=== PATIENT | female | born 2000 | race African-American/Black ===

== ENCOUNTER 2025-04-13 06:28 | Emergency (ER) | payer OTHER ==
[~2025-04-13] VITALS: Ht 172.7 cm; Wt 79.4 kg
[2025-04-13] MEDS ORDERED: METOPROLOL TARTRATE 25 MG TABLET ONE (07:13)
[2025-04-13] MEDS: IV NS 0.9% 1,000 ML BAG IV ONE (07:14)
[2025-04-13 07:16] LABS: BASOPHILS # (AUTO) 0.1 K/uL (0.0-0.2); BASOPHILS % (AUTO) 0.7 % (0.0-2.0); EOSINOPHILS % (AUTO) 0.2 % (0.0-6.0); HEMATOCRIT 36 % (33-45); HEMOGLOBIN 11.3 g/dL (11.5-14.8); LYMPHOCYTES % (AUTO) 20.6 % (20.0-44.0); MEAN CORPUSCULAR HEMOGLOBIN 22 PG (26.0-33.0); MEAN CORPUSCULAR HGB CONC 32 g/dl (31.0-36.0); MEAN CORPUSCULAR VOLUME 68 fL (82-100); MONOCYTES # (AUTO) 0.5 K/uL (0.1-1.30); MONOCYTES % (AUTO) 5.6 % (2.0-12.0); NEUTROPHILS # (AUTO) 6.9 K/uL (1.8-8.9); NEUTROPHILS % (AUTO) 72.9 % (43.0-81.0); PLATELET COUNT (AUTO) 236 K/uL (150-450); RED BLOOD CELL COUNT(AUTO) 5.21 MIL/uL (4.0-5.2); RED CELL DISTRIBUTION WIDTH 16.9 % (11.5-15.0); WHITE BLOOD COUNT (AUTO) 9.5 K/uL (4.3-11.0)
[2025-04-13 07:24] LABS: CARBON DIOXIDE 25 mmol/L (21-32); CHLORIDE 97 mmol/L (98-107); CREATININE 0.6 mg/dL (0.6-1.3); GLUCOSE 100 mg/dL (74-106); POTASSIUM 3.3 mmol/L (3.5-5.1); SODIUM SERUM 134 mmol/L (136-145); UREA NITROGEN, BLOOD 6 mg/dL (7-18)
[2025-04-13 07:32] LABS: ALANINE AMINOTRANSFERASE 44 U/L (12-78); ALBUMIN 4.2 g/dL (3.4-5.0); ALCOHOL, BLOOD 45 mg/dL (0-10); ALKALINE PHOSPHATASE 56 U/L (46-116); ASPARTATE AMINOTRANSFERASE 60 U/L (15-37); BILIRUBIN,DIRECT 0.4 mg/dL (0.0-0.2); BILIRUBIN,TOTAL 1.6 mg/dL (0.2-1.0); TOTAL PROTEIN, SERUM 8.2 g/dL (6.4-8.2)
[2025-04-13] MEDS: METOPROLOL TARTRATE 25 MG TABLET PO ONE (07:40)
[2025-04-13 07:48] VITALS: BP 121/57; TEMP 97.9; O2SAT 99
== END 2025-04-13 07:50 | disposition left against medical advice (07) ==
LOC: ER 06:32
DX: R00.0 Tachycardia, unspecified (principal); F41.1 Generalized anxiety disorder; E87.1 Hypo-osmolality and hyponatremia; E87.6 Hypokalemia; F41.0 Panic disorder [episodic paroxysmal anxiety]; Z79.899 Other long term (current) drug therapy
CPT/HCPCS: 99285; 93005; 71045; 85025; 80048; 80076; 36415; 84443; 84484; 80320; J7030; G0480

== ENCOUNTER 2025-10-27 06:37 | Emergency (ER) | payer MEDICAID, OTHER ==
[~2025-10-27] VITALS: Ht 172.7 cm; Wt 77.1 kg
[2025-10-27] MEDS ORDERED: CHLORDIAZEPOXIDE HCL 25 MG CAPSULE ONE (07:00)
[2025-10-27] MEDS: CHLORDIAZEPOXIDE HCL 25 MG CAPSULE PO ONE (07:03)
[2025-10-27 07:22] LABS: PLATELET COUNT (AUTO) 251 K/uL (150-450); RED BLOOD CELL COUNT(AUTO) 5.11 MIL/uL (4.0-5.2); RED CELL DISTRIBUTION WIDTH 17.1 % (11.5-15.0); WHITE BLOOD COUNT (AUTO) 8.8 K/uL (4.3-11.0)
[2025-10-27 07:45] LABS: CALCIUM, SERUM 9.2 mg/dL (8.5-10.1); CREATININE 0.9 mg/dL (0.6-1.3); SODIUM SERUM 133.0 mmol/L (136-145); UREA NITROGEN, BLOOD 12.0 mg/dL (7-18)
[2025-10-27 07:51] LABS: ASPARTATE AMINOTRANSFERASE 42.0 U/L (15-37); TOTAL PROTEIN, SERUM 8.0 g/dL (6.4-8.2)
[2025-10-27 07:56] LABS: PREGNANCY TEST SERUM QUAN 0 mIU/mL (0-6)
[2025-10-27] MEDS ORDERED: CHLO25CA22 PO (08:22)
[2025-10-27 09:11] VITALS: BP 129/67; TEMP 98.2; O2SAT 99
== END 2025-10-27 09:11 | disposition home or self-care (01) ==
LOC: ER 06:46
DX: F10.239 Alcohol dependence with withdrawal, unspecified (principal); F31.9 Bipolar disorder, unspecified; Z91.048 Other nonmedicinal substance allergy status; Z60.2 Problems related to living alone; Y90.9 Presence of alcohol in blood, level not specified
CPT/HCPCS: 36415; 80048-TC; 80076-TC; 83690-TC; 84702-TC; 85025-TC